=== PATIENT | female | born 1950 | race Hispanic/Latino ===

== ENCOUNTER 2018-01-04 14:26 | Inpatient (IN) | payer MEDICARE, OTHER ==
[2018-01-04 15:04] VITALS: BMI 37.8
--- NOTE | 2018-01-04 15:06 | ED PDOC ---
Arrival/HPI - General Time Seen by Provider: 01/04/18 14:44 Historian: Patient - History of Present Illness Narrative History of Present Illness (Text): 01/04/18 15:03 Jaimie Dejesus is a 67 year old female, whose past medical history includes CAD, MN with 2 stents, hypertension, and CVA, who presents to the Emergency department complaining of chest pain. Patient states she began experiencing mid- sternal chest pain yesterday evening while sitting at home. Patient states the episode lasted 30 minutes and then resolved on its own, but notes she was unable to go back sleep secondary to her chronic back pain. Patient states today at 14:30 prior to arrival while walking in a store, chest tightness returned with some associated shortness of breath. Patient denies any fever, chills, nausea, vomiting, diarrhea, urinary symptoms, back pain, neck pain, headache, dizziness, or any other complaints. PMD: Dr. Leger Satellite Communications Operator: Dr. Espinoza Symptom Onset: Gradual Symptom Course: Unchanged Activities at Onset: Light Context: Home Past Medical History - Provider Review Nursing Documentation Reviewed: Yes - Cardiac Hx Hypertension: Yes - Neurological HX Cerebrovascular Accident: Yes Hx Headaches: Yes - Musculoskeletal/Rheumatological Hx Arthritis: Yes Hx Back Pain: Yes Hx Degenerative Joint Disease: Yes - Psychiatric Hx Anxiety: Yes Hx Substance Use: No - Surgical History Hx Cholecystectomy: Yes Hx Hysterectomy: Yes - Anesthesia Hx Anesthesia: Yes - Suicidal Assessment Feels Threatened In Home Enviroment: No Family/Social History - Physician Review Nursing Documentation Reviewed: Yes Family/Social History: Unknown Family HX Smoking Status: Current Some Days Smoker Hx Alcohol Use: No Hx Substance Use: No Hx Substance Use Treatment: No Allergies/Home Meds Allergies/Adverse Reactions: Allergies Penicillins Allergy (Verified 01/04/18 15:11) ANAPHYLAXIS Home Medications: Home Meds Medication Instructions Recorded Confirmed Acetaminophen/Hydrocodone Bi 1 tab PO TID 01/19/12 04/16/15 [APAP/Hydrocodone Bitartrate 500 mg-5 mg] Alprazolam [Xanax] 0.5 mg PO BID 01/19/12 04/16/15 Atenolol [Atenolol] 100 mg PO DAILY 01/19/12 04/16/15 Clopidogrel Hydrogen Sulfate 75 mg PO DAILY 01/19/12 04/16/15 [Plavix] Diltiazem Hydrochloride [Cardizem 240 mg PO DAILY 01/19/12 04/16/15 Cd] Hydrochlorothiazide/Lisinopr 2 tab PO DAILY 01/19/12 04/16/15 [Lisinopril and Hydrochlorothiazide 12.5 mg-20] Lorazepam 1 mg PO HS 01/19/12 04/16/15 Aspirin [Aspirin Children's] 81 mg PO DAILY 02/25/12 04/16/15 Atorvastatin Calcium [Lipitor] 40 mg PO DAILY 02/25/12 04/16/15 Ipratropium/Albuterol Sulfate 1 puff INH QID 04/16/15 04/16/15 [Combivent] Pantoprazole Sodium [Pantoprazole 40 mg PO BID 04/16/15 04/16/15 Sodium] Review of Systems - Review of Systems Constitutional: absent: Fevers ENT: absent: Sore Throat, Rhinorrhea Respiratory: SOB Cardiovascular: Chest Pain, MARIE. absent: Edema, Calf Pain Gastrointestinal: absent: Abdominal Pain, Diarrhea, Nausea, Vomiting Genitourinary Female: absent: Dysuria, Frequency, Hematuria Musculoskeletal: absent: Back Pain, Neck Pain Skin: absent: Rash Neurological: absent: Headache, Dizziness Endocrine: absent: Polyuria Hemo/Lymphatic: absent: Easy Bleeding, Easy Bruising Psychiatric: absent: Depression, Suicidal Ideation Physical Exam - Physical Exam Narrative Physical Exam (Text): Head: Atraumatic. Normocephalic. Eyes: PERRL. EOMI. Conjunctivae are not pale. ENT: Mucous membranes are moist and intact. Oropharynx is clear and symmetric. Neck: Supple. Full ROM. No JVD. No lymphadenopathy. Cardiovascular: Regular rate. Regular rhythm. Systolic murmur. Blood pressure and pulse equal in both upper extremities as checked by me. Pulmonary/Chest: No evidence of respiratory distress. Clear to auscultation bilaterally. No wheezing, rales or rhonchi. Abdominal: Soft and non-distended. There is no tenderness. No rebound, guarding, or rigidity. No organomegaly. Good bowel sounds. Back: No CVA tenderness. Right sided lower lumbar paraspinal tenderness, no erythema or edema. Extremities: No edema. No cyanosis. No clubbing. Full range of motion in all extremities. No calf tenderness. Skin: Skin is warm and dry. No petechiae. No purpura. Neurological: Alert, awake, and oriented to person, place, time, and situation. Normal speech. Motor and sensory exam intact. Psychiatric: Good eye contact. Normal interaction, affect, and behavior. 0 Vital Signs Reviewed: Yes Vital Signs Temp Pulse Resp BP Pulse Ox 01/04/18 15:04 98.1 F 93 H 18 167/97 H 97 Temperature: Afebrile Blood Pressure: Hypertensive Pulse: Regular Respiratory Rate: Normal Appearance: Positive for: Well-Appearing, Non-Toxic, Comfortable Pain Distress: Mild Mental Status: Positive for: Alert and Oriented X 3 Medical Decision Making ED Course and Treatment: 01/04/18 15:03 Impression: 67 year old female complaining of mid-sterna chest tightness since yesterday evening. Differential Diagnosis included but are not limited to: MN vs. unstable angina vs. GERD Plan: -- EKG -- CXR -- Labs, cardiac enzymes -- Aspirin -- Plavix -- Reassess and disposition Progress Notes: 01/04/18 16:26 Patient's hospitalization in 2011 reviewed. Prior cath report reviewed. Patient reports chest discomfort, does not radiate to neck or back. No hypoxia or respiratory distress noted. No pleuritic pain. Quit smoking. Hx of htn. She stopped taking her aspirin and plavix "a while ago". Initial EKG was unremarkable, however pt has a significant past cardiac history with stent placement. Will admit to telemetry with cardiac consult with Dr. Espinoza. Case discussed with Dr. Leger, who is aware and agrees with plan. Accepts pt in to her service. 01/04/18 16:[address] Espinoza, boat dispatcher, who is aware and agrees with plan. 01/04/18 16:30 Chest X-ray Findings : LUNGS: No active pulmonary disease. PLEURA: No significant pleural effusion identified, no pneumothorax apparent. CARDIOVASCULAR: Normal. OSSEOUS STRUCTURES: No significant abnormalities. VISUALIZED UPPER ABDOMEN: Normal. OTHER FINDINGS: None. IMPRESSION: No active disease. Patient on re-evaluation with resolution of pain. ASA, plavix ordered. Dr. Espinoza at bedside, patient ordered Lovenox. She is currently pain free, denies sob. Reassessment Condition: Re-examined, Improving,but remains with symptoms - Lab Interpretations Lab Results: 01/04/18 15:55 01/04/18 15:55 Lab Results 01/04/18 15:55: Sodium 142, Potassium 4.5, Chloride 100, Carbon Dioxide 29, Anion Gap 18, BUN 12, Creatinine 0.7, Est GFR ( Amer) > 60, Est GFR (Non- Af Amer) > 60, Random Glucose 115 H, Calcium 10.1, Total Bilirubin 0.5, AST 46 H , ALT 65 H, Alkaline Phosphatase 96, Lactate Dehydrogenase 515, Total Creatine Kinase 67, Troponin I 0.01, Total Protein 7.3, Albumin 4.6, Globulin 2.8, Albumin/Globulin Ratio 1.7 01/04/18 15:55: PT 10.5, INR 0.92 L, APTT 30.6 01/04/18 15:55: WBC 9.4, RBC 4.47, Hgb 14.0, Hct 40.8, MCV 91.3, MCH 31.3, MCHC 34.3, RDW 13.5, Plt Count 224, MPV 8.8, Gran % 51.9, Lymph % (Auto) 39.8 H, [place] % (Auto) 5.1, Eos % (Auto) 2.9, Baso % (Auto) 0.3, Gran # 4.89, Lymph # ( Auto) 3.8 H, [place] # (Auto) 0.5, Eos # (Auto) 0.3, Baso # (Auto) 0.03 I have reviewed the lab results: Yes - RAD Interpretation Radiology Orders: 01/04/18 15:16 CHEST PORTABLE [RAD] Stat Clerical Associate: Radiologist - EKG Interpretation EKG Interpretation (Text): 01/04/18 17:02 EKG at 14:29 normal sinus rhythm rate of [address] abnormality Interpreted by ED Physician: Yes Type: 12 lead EKG - Medication Orders Current Medication Orders: Discontinued Medications Aspirin (Aspirin Chewable) 81 mg PO STAT STA Stop: 01/04/18 15:18 Last Admin: 01/04/18 15:42 Dose: 81 mg Clopidogrel Bisulfate (Plavix) 300 mg PO STAT STA Stop: 01/04/18 15:20 Last Admin: 01/04/18 15:42 Dose: 300 mg Enoxaparin Sodium (Lovenox) 90 mg SC STAT STA PRN Reason: Protocol Stop: 01/04/18 16:31 Last Admin: 01/04/18 16:56 Dose: 90 mg Subcutaneous Administrations Document 01/04/18 16:56 LA (Rec: 01/04/18 16:56 LA [id number]) Injection Site MAR Injection Site Left Arm Charges for Administration # of Subcutaneous Administrations 1 - Scribe Statement The provider has reviewed the documentation as recorded by the Scribe Ana M De Los Santos All medical record entries made by the Scribe were at my direction and personally dictated by me. I have reviewed the chart and agree that the record accurately reflects my personal performance of the history, physical exam, medical decision making, and the department course for this patient. I have also personally directed, reviewed, and agree with the discharge instructions and disposition. Disposition/Present on Arrival - Present on Arrival Any Indicators Present on Arrival: No History of DVT/PE: No History of Uncontrolled Diabetes: No Urinary Catheter: No History Surgical Site Infection Following: None - Disposition Have Diagnosis and Disposition been Completed?: Yes Diagnosis: Chest pain Disposition: HOSPITALIZED Disposition Time: 16:00 Patient Plan: Admission, Telemetry Condition: FAIR Discharge Instructions (ExitCare): Chest Pain (ED) Referrals: Ben Leger MD [Primary Care Provider] - Follow up with primary
[2018-01-04 16:05] LABS: BASO # 0.03 K/mm3 (0.0-2.0); BASO % 0.3 % (0.0-3.0); EOS # 0.3 (0.0-0.7); EOS % 2.9 % (1.5-5.0); GRAN # 4.89 (1.4-6.5); GRAN % 51.9 % (50.0-68.0); LYMPH # 3.8 (1.2-3.4); LYMPH % 39.8 % (22.0-35.0); MEAN CELL VOLUME 91.3 fl (80.0-105.0); MEAN CORPUSCULAR HEMOGLOBIN 31.3 pg (25.0-35.0); MEAN CORPUSCULAR HGB CONC 34.3 g/dl (31.0-37.0); MEAN PLATELET VOLUME 8.8 fl (7.0-11.0); MONO # 0.5 (0.1-0.6); MONO % 5.1 % (1.0-6.0); RBC 4.47 10^6/uL (3.5-6.1); RED CELL DISTRIBUTION WIDTH 13.5 % (11.5-14.5); WHITE BLOOD COUNT 9.4 10^3/ul (4.5-11.0)
[2018-01-04 16:19] LABS: ALB/GLOB RATIO 1.7 (1.1-1.8); ALBUMIN 4.6 g/dL (3.0-4.8); ALT/SGPT 65 U/L (7-56); AST/SGOT 46 U/L (14-36); BLOOD UREA NITROGEN 12 mg/dL (7-21); CALCIUM 10.1 mg/dL (8.4-10.5); GFR AFRICAN-AMERICAN > 60; GFR NON-AFRICAN AMERICAN > 60
[2018-01-04 16:21] LABS: INR 0.92 (0.93-1.08); PARTIAL THROMBOPLASTIN TIME 30.6 Seconds (25.1-36.5); PROTHROMBIN TIME 10.5 SECONDS (9.4-12.5)
--- NOTE | 2018-01-04 16:26 | RAD ---
HISTORY: chest pain COMPARISON: 02/23/2012 FINDINGS: LUNGS: No active pulmonary disease. PLEURA: No significant pleural effusion identified, no pneumothorax apparent. CARDIOVASCULAR: Normal. OSSEOUS STRUCTURES: No significant abnormalities. VISUALIZED UPPER ABDOMEN: Normal. OTHER FINDINGS: None. IMPRESSION: No active disease.
[2018-01-04 16:30] LABS: TROPONIN I 0.01 ng/mL
[2018-01-04] MEDS ORDERED: Enoxaparin 100 mg Syringe SC STA (16:30)
[2018-01-04 18:30] LABS: PH,URINE 6.5 (4.7-8.0); URINE BILIRUBIN NEGATIVE (NEGATIVE); URINE BLOOD NEGATIVE (NEGATIVE); URINE GLUCOSE (UA) NEGATIVE (NEGATIVE); URINE LEUKOCYTE ESTERASE NEGATIVE Leu/uL (NEGATIVE); URINE PROTEIN NEGATIVE mg/dL (<30 mg/dL); URINE UROBILINOGEN 0.2 E.U./dL (<1 E.U./dL)
[2018-01-04 18:33] LABS: URINE APPEARANCE CLEAR (CLEAR); URINE COLOR YELLOW (YELLOW)
--- NOTE | 2018-01-04 21:10 | CARD ---
APPROVED REPORT EKG Measurement Heart [id number] <Conclusion> Normal sinus rhythm Moderate voltage criteria for LVH, may be normal variant Nonspecific ST abnormality Prolonged QT Abnormal ECG
[2018-01-04] MEDS ORDERED: LORAZEPAM 1 MG PO SCH (22:00)
[2018-01-04 22:16] LABS: TROPONIN I 0.03 ng/mL
[2018-01-04] MEDS: Oxymetazoline 0.05% Nasal Spray (30 ml) NS SCH (22:32)
[2018-01-04] MEDS ORDERED: Pneumococcal 23-Valent Vaccine IM ONE (23:20)
--- NOTE | 2018-01-05 04:28 | CON ---
DATE: 01/04/2018 REASON FOR CONSULTATION: Followup chest pain, unstable angina, acute coronary syndrome. BRIEF CLINICAL HISTORY: A 67-year-old obese female with past medical history significant for coronary artery disease, noncompliance to the medication, status post stent in 2011, came in with complaint of 2 episodes of chest pain and tightness yesterday while patient was at home and watching TV, suddenly she has had tightness and chest pain, relieved after half an hour by itself. Today, patient was in [employer] shopping and she felt tightness and shortness of breath and came to the emergency room. Denies any episode of chest pain now. PAST MEDICAL HISTORY: Past history significant for history of degenerative joint disease, hypertension, osteoporosis, diverticular colonic disease, history of CVA in the past, history of coronary artery disease status post stent, and after the cardiac catheterization on 02/24/2012, very noncompliance to followup. At that time, the cardiac catheterization revealed left main essentially free of significant disease, heavily calcified right coronary artery, bifurcates into LAD and circumflex. LAD is a moderate caliber vessel proximally, but after the mid-segment, it is a very small caliber and heavily calcified artery and trunk calcification noted. At mid portion has 50% stenosis noted. Circumflex was also a moderately caliber vessel, heavily calcified, gives off trunk calcification owing to 50% to 60% stenosis noted. There is a complex 50% to 60% stenosis noted at the take off of OM1 and OM2. Right coronary artery is a moderately large caliber vessel, large PDA branch, mid portion with 99% stenosis with a bridge collateral very heavily calcified. LV angiogram revealed ejection fraction 50% to 55%. EDP was in the range of 18. At that time, the PTCA of right coronary artery was done with Xience drug eluting stent dated 02/23/2012. PREVIOUS CARDIAC WORKUP: History of angioplasty of right coronary artery, 12/27/2011. Followup stress tests on 01/29/2013 and then on 04/16/2015 are essentially normal myocardial perfusion studies. At that time, the comment was made that no change from previous stress test dated 01/29/2013, no significant change than the patient's last followup. CURRENT MEDICATIONS: Current medication patient is taking at home, pantoprazole, lorazepam, Combivent inhaler, hydrochlorothiazide-lisinopril, Cardizem CD 240 mg, Plavix 75 mg, atorvastatin, atenolol, aspirin, but patient stopped taking aspirin and Plavix both, now taking herbal medication. REVIEW OF SYSTEMS: As per HPI. PHYSICAL EXAMINATION: As follows: VITAL SIGNS: Temperature afebrile, heart rate 93, blood pressure 160/97. HEENT: PERRLA. Extraocular muscles intact. NECK: Supple. No carotid bruit or thyromegaly. CHEST: Clear to auscultation. HEART: S1 and S2, regular. ABDOMEN: Soft. EXTREMITIES: Clubbing and cyanosis, negative. DIAGNOSTIC DATA: EKG shows normal sinus rhythm, no acute ST-T changes noted. LABORATORY DATA: Blood workup as follows. WBC 9, hemoglobin 14, hematocrit 40.8, platelet count 224. Chemistry shows sodium 142, potassium 4.5, chloride 100, carbon dioxide 29, anion gap of 12, BUN 18, creatinine 0.7. Troponin is 0.01. IMPRESSION: Acute coronary artery syndrome, unstable angina, diabetes, hypertension, hyperlipidemia, obesity, noncompliance to medication, history of coronary artery disease, history of stent in right coronary artery. RECOMMENDATION: We will load with Plavix 300 mg. Give Lovenox 1 to 2 mg/kg. We will start aspirin and Plavix. Resume the previous medication including beta brina, KARIN inhibitors. Echo to assess LV function. Follow up serial CPK and troponin, and consider cardiac catheterization tomorrow. Discussed risks, benefits and alternative with patient, agreed to proceed with cardiac catheterization. Thank you, Dr. Leger for providing us the opportunity in taking care of the patient, Jaimie Dejesus. Catrachita Espinoza MD cc: Ben Leger MD MTDD
[2018-01-05 06:46] LABS: BASO # 0.03 K/mm3 (0.0-2.0); BASO % 0.4 % (0.0-3.0); EOS # 0.3 (0.0-0.7); EOS % 3.7 % (1.5-5.0); GRAN # 2.92 (1.4-6.5); HEMOGLOBIN 13.8 g/dL (12.0-16.0); LYMPH % 52.2 % (22.0-35.0); MEAN CELL VOLUME 90.8 fl (80.0-105.0); MEAN CORPUSCULAR HEMOGLOBIN 30.9 pg (25.0-35.0); MONO # 0.4 (0.1-0.6); MONO % 5.7 % (1.0-6.0); RBC 4.47 10^6/uL (3.5-6.1); RED CELL DISTRIBUTION WIDTH 13.4 % (11.5-14.5); WHITE BLOOD COUNT 7.7 10^3/ul (4.5-11.0)
[2018-01-05 06:51] LABS: ALB/GLOB RATIO 1.6 (1.1-1.8); ALBUMIN 4.5 g/dL (3.0-4.8); ALT/SGPT 65 U/L (7-56); AST/SGOT 44 U/L (14-36); BLOOD UREA NITROGEN 11 mg/dL (7-21); GFR AFRICAN-AMERICAN > 60; GFR NON-AFRICAN AMERICAN > 60; HDL CHOLESTEROL 49 mg/dL (29-60)
[2018-01-05 07:02] LABS: TROPONIN I 0.02 ng/mL
[2018-01-05 07:04] LABS: LDL CHOLESTEROL 104 mg/dL (0-129)
[2018-01-05] MEDS ORDERED: Lidocaine 2% Inj (20ml) ONE (07:06)
[2018-01-05] MEDS ORDERED: Verapamil 2 ML ONE (07:06)
[2018-01-05] MEDS ORDERED: Midazolam 2 MG/2 ML VIAL ONE ×3 (07:07→11:15)
[2018-01-05] MEDS ORDERED: Iodixanol 320 MG/ML 200 ML BOTTLE IV ONE (07:08)
[2018-01-05] MEDS ORDERED: Potassium Chloride 20 mEq ER Tab PO STA (07:33)
--- NOTE | 2018-01-05 08:42 | HP ---
DATE OF EXAM: 01/04/2018 HISTORY OF PRESENT ILLNESS: Patient is 67 year old, known to me from office practice, was recently seen in office because of her back pain. Patient states she stated to have chest discomfort since yesterday, got worse this morning, felt pressure. Patient denies any dizziness, does complain of mild shortness of breath. Denies any fever or chills. No history of nausea or vomiting. PAST MEDICAL HISTORY: Significant for: 1. Coronary artery disease, status post angioplasty. 2. Hypertension. 3. History of CVA in the past. 4. History of degenerative disk disease, status post multiple epidurals and stimulator placement. 5. History of diverticulosis. 6. Intermittent migraine headache. ALLERGIES: SHE IS ALLERGIC TO PENICILLIN. FAMILY HISTORY: Not relevant. MEDICATIONS AT HOME: Patient is on: 1. Lisinopril. 2. Hydrochlorothiazide. 3. Diltiazem 240 mg daily. 4. Plavix 75 daily. 5. Atorvastatin 40 mg daily. 6. Atenolol 100 mg daily. 7. Aspirin 81 daily. 8. Metformin 500 twice a day. 9. Protonix 40 daily. 10. Lorazepam 1 mg twice a day. 11. Xanax 0.5 twice a day. 12. Combivent. 13. Percocet. SOCIAL HISTORY: She has a history of smoking in the past, still smokes here and there. Denies alcohol use. REVIEW OF SYSTEMS: Significant for chest pressure, chronic back pain and intermittent shortness of breath. PHYSICAL EXAMINATION: GENERAL: She is awake, alert, oriented, communicative. VITAL SIGNS: She is afebrile. Pulse 93, respiration 18, blood pressure 167/97. LUNGS: Bilateral fair air flow. No rhonchi or crackle. HEART: S1 and S2 audible. ABDOMEN: Soft, nontender. No rebound, no guarding. NEUROLOGIC: She is awake and alert, able to communicate. LABORATORY EXAMINATION: WBC is 9.4, hemoglobin 14, hematocrit 40, platelet of 224. PT 10.5, INR 0.92. Chemistry: Sodium 142, potassium 4.5, chloride 100, CO2 29, BUN 12, creatinine 0.7, blood sugar 115. AST 46, ALT 65. ASSESSMENT AND PLAN: 1. Chest pain, rule out myocardial infarction. 2. Coronary artery disease, status post angioplasty. She has stress test done back in 2014. 3. Degenerative disk disease. 4. Patient had cardiac cath done in [address] Espinoza and had PTCA of right coronary artery done. 5. Insulin-dependent diabetes. 6. Anxiety disorder. 7. Chronic obstructive pulmonary disease. So plan is, patient will be kept in observation. We will follow up cardiac enzymes. resume all medications. Cardiology consult by Dr. Espinoza has been requested and we will start her on . Ben Leger MD
[2018-01-05] MEDS: Oxymetazoline 0.05% Nasal Spray (30 ml) NS SCH ×2 (09:17→20:17)
[2018-01-05] MEDS ORDERED: ATENOLOL 25 MG PO SCH (10:00)
[2018-01-05] MEDS ORDERED: Non Formulary Medication (Alprazolam [Xanax] 0.5 MG) PO SCH (10:00)
[2018-01-05] MEDS ORDERED: [UNRECOGNIZED DRUG - OTHER] PO SCH (10:00)
[2018-01-05] MEDS ORDERED: ASPIRIN 81 MG PO SCH (10:00)
[2018-01-05] MEDS ORDERED: HYDROCHLOROTHIAZIDE PO SCH (10:00)
[2018-01-05] MEDS ORDERED: DILTIAZEM HYDROCHLORIDE PO SCH (10:00)
[2018-01-05] MEDS ORDERED: LISINOPRIL PO SCH (10:00)
[2018-01-05] MEDS ORDERED: Eptifibatide 20 mg/10mL Inj IVP ONE (11:25)
[2018-01-05] MEDS ORDERED: Sodium Chloride 0.9% 1,000 ML IV SCH (12:30)
--- NOTE | 2018-01-05 13:07 | PN ---
DATE: 01/05/2018 SUBJECTIVE: The patient is a 67 years old, seen in lab clerk, having cardiac cath done, came in with chest pain and pressure, history of coronary artery disease in the past with angioplasty. PHYSICAL EXAMINATION: GENERAL: On examination today, she is awake, alert, oriented, communicative. VITAL SIGNS: She is afebrile, pulse rate 81, respirations 18, blood pressure 125/74. LUNGS: Bilateral good airflow. No rhonchi or crackle. HEART: S1 and S2 audible. ABDOMEN: Soft, obese, nontender. No rebound, no guarding. NEUROLOGIC: The patient is awake, alert, oriented, communicative. LABORATORY DATA: WBC 7.7, hemoglobin 13.8, hematocrit 40.6, platelet of 216. Chemistry: Sodium 142, potassium 3.6, chloride 101, CO2 26, BUN 11, creatinine 0.6. Blood sugar of 134. Urinalysis is unremarkable. ASSESSMENT: 1. Chest pain, rule out coronary artery disease. 2. Hypertension. 3. Morbid obesity. 4. History of cerebrovascular accident in the past. 5. Hyperlipidemia. 6. History of degenerative disk disease, status post multiple epidurals. 7. Coronary artery disease, status post right coronary artery angioplasty. PLAN: The patient is going for catheterization. We will continue on current medications. Further recommendation after cardiac cath. Ben Leger MD
[2018-01-05] MEDS: diltiaZEM 240 mg/24 Hours CD Cap PO SCH (13:08)
[2018-01-05] MEDS: Pantoprazole 40 mg EC Tab PO SCH ×2 (13:10→18:14)
--- NOTE | 2018-01-05 13:15 | CPOSTOP ---
DATE: 01/05/2018 CARDIOVASCULAR LAB PROCEDURE POSTPROCEDURE NOTE PHYSICIAN: Catrachita Espinoza MD UTILIZATION MANAGEMENT RN: Azeem Davis, durable medical equipment technician. TYPE OF ANESTHESIA: Moderate conscious sedation. Total dose given 3 mg of Versed, 100 of fentanyl. PRE-PROCEDURE DIAGNOSES: Unstable angina, acute coronary syndrome. PROCEDURE PERFORMED: Left heart catheterization and stenting of proximal right coronary artery and distal right coronary artery. FINDINGS: Proximal RCA 80% stenosis and distal RCA 90% stenosis. FINAL DIAGNOSIS: Critical one-vessel disease, proximal and distal right coronary artery. POSTPROCEDURE CONDITION: The patient is stable. VASCULAR ACCESS SITE: Right femoral artery. CLOSURE DEVICE: Angio-Seal. TOTAL RADIATION DOSE: DAP 52818.1 milligray unit. TOTAL FLUORO TIME: 20.8 minutes. Catrachita Espinoza MD MTDD
[2018-01-05 13:24] LABS: ALB/GLOB RATIO 1.7 (1.1-1.8); ALBUMIN 4.3 g/dL (3.0-4.8); ALT/SGPT 67 U/L (7-56); AST/SGOT 42 U/L (14-36); BLOOD UREA NITROGEN 9 mg/dL (7-21); CALCIUM 9.7 mg/dL (8.4-10.5); GFR AFRICAN-AMERICAN > 60; GFR NON-AFRICAN AMERICAN > 60
--- NOTE | 2018-01-05 13:33 | CARD ---
APPROVED REPORT EKG Measurement Heart [id number] MO 172P6 [id number] <Conclusion> Normal sinus rhythm Minimal voltage criteria for LVH, may be normal variant Prolonged QT Abnormal ECG
[2018-01-05 13:38] VITALS: RESP 20
--- NOTE | 2018-01-05 15:00 | CARD ---
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 INDICATION The indication(s) include : unstable angina . CASE TECHNIQUE The patient was brought urgently to the Cardiac Catheterization Laboratory in a fasting state and was prepped and draped in a sterile manner. The right femoral groin was infiltrated with 2% Lidocaine subcutaneous anesthesia. A 6 Fr x 11 cm Joy sheath was inserted into the right femoral artery without difficulty. Coronary angiography was performed using coronary diagnostic catheters. The left coronary system was accessed and visualized with a Diagnostic ,5 Fr JL 4 catheter. The right coronary system was accessed and visualized with a Diagnostic ,5F JR 4 CATH DXT 100 CM catheter. The left ventricle was accessed and visualized with a 5F PIGTAIL 145 CATH DXT 110 CM catheter. Left ventricular/Aortic Valve gradient assessed on pullback. Left ventriculogram was performed in [place] projection. Closure device was deployed with a 6 Fr Angio-Seal without any complications. The patient tolerated the procedure well and there were no complications associated with the procedure. Vessel Analysis The patient's coronary anatomy is right dominant. The left main coronary artery is a medium size vessel with diffuse calcification noted throughout this vessel and without significant stenosis. Heavily calcified The left main bifurcates to the left anterior descending and circumflex. The left anterior descending artery is a medium size vessel with diffuse calcification noted throughout this vessel and without significant stenosis. Heavily calcified after Mid segment Diffusely tappers The first diagonal branch is a small size vessel with diffuse calcification noted throughout this vessel and without significant stenosis. The circumflex artery is a medium size vessel with diffuse calcification noted throughout this vessel and without significant stenosis. Heavily calcified Vessel The first obtuse marginal branch is a small size vessel with diffuse calcification noted throughout this vessel and without significant stenosis. The second obtuse marginal branch is a medium size vessel with diffuse calcification noted throughout this vessel and with significant stenosis. There is a 70% stenosis in the ostial segment. Complex lesion and Heavily calcified and small calibre vessel The right coronary artery is a large size vessel with diffuse calcification noted throughout this vessel and with significant stenosis. patent stent in Mid segment There is a 90% stenosis in the distal segment. proximal RCA, proximal to stent 80% stenosis The right posterior descending artery is a medium size vessel with diffuse calcification noted throughout this vessel and without significant stenosis. The right posterolateral branch is a medium size vessel with diffuse calcification noted throughout this vessel and without significant stenosis. Left Ventricle The left ventricle is normal in size with hyperdynamic contractility contractility. There was no cardiomyopathy. The left ventricular ejection fraction is estimated to be 65%. The left ventricular end diastolic pressure is 18 mmHg. There was no gradient across the aortic valve upon pullback. PCI Technique Lesion Anticoagulation was achieved with Heparin. Percutaneous coronary intervention was performed on the distal right coronary artery. The lesion stenosis prior to intervention was 90% with PALAK 1 flow. A 6 Fr AR 1 Guide Catheter was used to engage the ostium. A Luge 182 Interventional Guidewire was used to cross the lesion. BALLOON DILATION A Balloon catheter 2.5 x 8 mm Trek RX was inserted and inflated up to 12.00atm for 24seconds. STENT DEPLOYMENT A drug-eluting stent STENT RESOLUTE ELENA 3.0 X 12 was inserted and inflated up to 12.00atm for 20seconds. Final angiography reveals 0 % stenosis with PALAK 3 flow. COMMENTS while stent was being deployed pt went into V FIb requiring DC Cardioversion and then 100 mg of IV Lidocaine given,Pt recovered completely after DC cardioversion and no further arrythmia or neurogical deficit noted. PCI Technique Lesion 2 Percutaneous Coronary Intervention was performed on the proximal right coronary artery. The lesion stenosis prior to intervention was 80% with PALAK 2 flow. A 6 Fr AR 1 Guide Catheter was used to engage the ostium. A Luge 182 Interventional Guidewire was used to cross the lesion. BALLOON DILATION A Balloon catheter 2.5 x 8 mm Trek RX was inserted and inflated up to 12atm for 20seconds. STENT DEPLOYMENT A drug-eluting stent STENT RESOLUTE ELENA 3.0 X 08 was inserted and inflated up to 14atm for 20seconds. Final angiography reveals 0 % stenosis with PALAK 3 flow. Conclusion Critical One vessel Proximal and Distal RCA diz. with heavily calcified vessel. Moderate Disease in mid Cx OM2 -70% stenosis, which is unchanged from 2012, small calibre, heavily calcified and complex stenosis. Patent stent in mid LAD. Preserved LV FX. EF-65%, EDP-18 mmof hg. Successful PTCA with LOTTIE of Distal and Proximal RCA. While deploying stent In Distal RCA Pt. went into V Fib. requiring DC Cardioversion, also 100 mg IV lidocaine given, After thet pt. recovered completely with no further Arrythmia or neurological deficit. Recommendations Daily ASA with Plavix for at least one year Aggressive Medical TherapyCardiac Risk Reduction Program Weight Loss Reduction Program Cc; Dr. Leger.
[2018-01-05 16:04] LABS: BASO # 0.02 K/mm3 (0.0-2.0); BASO % 0.3 % (0.0-3.0); EOS % 0.5 % (1.5-5.0); GRAN # 4.74 (1.4-6.5); GRAN % 59.4 % (50.0-68.0); HEMOGLOBIN 13.6 g/dL (12.0-16.0); LYMPH # 2.7 (1.2-3.4); LYMPH % 33.4 % (22.0-35.0); MEAN CELL VOLUME 89.4 fl (80.0-105.0); MEAN CORPUSCULAR HEMOGLOBIN 31.5 pg (25.0-35.0); MEAN CORPUSCULAR HGB CONC 35.2 g/dl (31.0-37.0); MEAN PLATELET VOLUME 8.6 fl (7.0-11.0); MONO # 0.5 (0.1-0.6); MONO % 6.4 % (1.0-6.0); RBC 4.32 10^6/uL (3.5-6.1); RED CELL DISTRIBUTION WIDTH 13.2 % (11.5-14.5)
[2018-01-05 16:13] LABS: BLOOD UREA NITROGEN 10 mg/dL (7-21); CALCIUM 10.1 mg/dL (8.4-10.5); GFR AFRICAN-AMERICAN > 60; GFR NON-AFRICAN AMERICAN > 60
--- NOTE | 2018-01-05 16:21 | CARD ---
APPROVED REPORT EXAM: Two-dimensional and M-mode echocardiogram with Doppler and color Doppler. INDICATION Chest Pain 2D DIMENSIONS Left Atrium (2D)3.6 (1.6-4.0cm)IVSd1.0 (0.7-1.1cm) LVDd4.0 (3.9-5.9cm)PWd1.2 (0.7-1.1cm) LVDs2.8 (2.5-4.0cm)FS (%) 30.3 % LVEF (%)58.1 (>50%) M-Mode DIMENSIONS Aortic Root3.80 (2.2-3.7cm)Aortic Cusp Exc.2.10 (1.5-2.0cm) Aortic Valve AoV Peak Gnvuhigy822.0cm/Melia Peak GR.7mmHg Mitral Valve MV E Rgzotsbh47.6cm/sMV A Sdalxfzt933.0cm/sE/A ratio0.6 TDI Lateral E' Peak V10.90cm/sMedial E' Peak V5.17cm/sE/Lateral E'6.5 E/Medial E'13.7 Pulmonary Valve PV Peak Iafnevnj48.7cm/sPV Peak Grad.2mmHg Tricuspid Valve TR Peak Fhftblkd495hn/sRAP GBUPTWXR32plHkMA Peak Gr.7mmHg MAVW44cvAv LEFT VENTRICLE The left ventricle is normal size. There is normal left ventricular wall thickness. The left ventricular function is normal.EF-55-60% There is normal LV segmental wall motion. Transmitral Doppler flow pattern is Grade III-reversible restrictive diastolic dysfunction. No left ventricle thrombus noted on this study. There is no ventricular septal defect visualized. There is no left ventricular aneurysm. There is no mass noted in the left ventricle. RIGHT VENTRICLE The right ventricle is normal size. There is normal right ventricular wall thickness. The right ventricular systolic function is normal. ATRIA The left atrium size is normal. The right atrium size is normal. The interatrial septum is intact with no evidence for an atrial septal defect. AORTIC VALVE The aortic valve is thickened but opens well. There is trace aortic regurgitation. There is no aortic valvular stenosis. There is no aortic valvular vegetation. MITRAL VALVE The mitral valve is thickened but opens well. Mitral annular calcification is mild to moderate. Mitral regurgitation is trace. There is no mitral valve stenosis. There is no evidence of mitral valve prolapse. TRICUSPID VALVE The tricuspid valve leaflets are thickened , but open well. There is trace tricuspid regurgitation.RVSP-17 mmof Hg. There is no tricuspid valve stenosis. There is no tricuspid valve prolapse or vegetation. PULMONIC VALVE The pulmonary valve is normal in structure. There is trace pulmonic valvular regurgitation. There is no pulmonic valvular stenosis. GREAT VESSELS The aortic root is normal in size. The ascending aorta is normal in size. The pulmonary artery is normal. The IVC is normal in size and collapses >50% with inspiration. PERICARDIAL EFFUSION There is no pleural effusion. There is no pericardial effusion. <Conclusion> Normal chamber Sizer. EF-55-60% TYrace MR/TR/AR/PI RVSP-17 mmof hg.
[2018-01-05] MEDS: Oxycodone/Acetaminophen 5/325 mg Tab PO PRN (16:29)
[2018-01-05 23:59] VITALS: O2SAT 95
[2018-01-06 06:31] LABS: BASO # 0.02 K/mm3 (0.0-2.0); BASO % 0.2 % (0.0-3.0); EOS # 0.1 (0.0-0.7); EOS % 1.1 % (1.5-5.0); GRAN # 5.8 (1.4-6.5); HEMOGLOBIN 14.3 g/dL (12.0-16.0); LYMPH # 2.9 (1.2-3.4); LYMPH % 30.2 % (22.0-35.0); MEAN CELL VOLUME 90.8 fl (80.0-105.0); MEAN CORPUSCULAR HEMOGLOBIN 31.2 pg (25.0-35.0); MEAN CORPUSCULAR HGB CONC 34.4 g/dl (31.0-37.0); MEAN PLATELET VOLUME 8.8 fl (7.0-11.0); MONO # 0.8 (0.1-0.6); MONO % 8.5 % (1.0-6.0); RBC 4.58 10^6/uL (3.5-6.1); RED CELL DISTRIBUTION WIDTH 13.7 % (11.5-14.5); WHITE BLOOD COUNT 9.7 10^3/ul (4.5-11.0)
[2018-01-06] MEDS: Oxymetazoline 0.05% Nasal Spray (30 ml) NS SCH (09:27)
[2018-01-06] MEDS: diltiaZEM 240 mg/24 Hours CD Cap PO SCH (09:27)
[2018-01-06] MEDS: Pantoprazole 40 mg EC Tab PO SCH (09:29)
[2018-01-06] MEDS: Oxycodone/Acetaminophen 5/325 mg Tab PO PRN (09:29)
--- NOTE | 2018-01-06 10:31 | PN ---
DATE: 01/06/2018 REASON FOR CONSULTATION AND FOLLOWUP: Chest pain, unstable angina, acute coronary syndrome, status post 2 stents in RCA. The patient denies any chest pain, shortness of breath, any palpitation. The patient is not in apparent distress. PHYSICAL EXAMINATION: VITAL SIGNS: As follows: Temperature afebrile, heart rate 87, blood pressure 118/68. HEENT: PERRLA, intact. NECK: Supple. No carotid bruit or thyromegaly. CHEST: Clear to auscultation. HEART: S1 and S2, regular. ABDOMEN: Soft. EXTREMITIES: Clubbing and cyanosis, negative. LABORATORY DATA: Blood workup as follows. WBC 9.3, hemoglobin 14.3, hematocrit 41.6, platelet count 217. Chemistry shows sodium 142, potassium 3.7, chloride 104, carbon dioxide 25, anion gap of 17, BUN 10, creatinine 0.6. EKG shows normal sinus rhythm with acute ST-T changes, essentially unchanged on admission. IMPRESSION: Acute coronary syndrome, status post percutaneous transluminal coronary angioplasty of right coronary artery, 2 drug eluting stents, proximal and distal right coronary artery. Status post ventricular fibrillation during angioplasty after placement of the first. Before deployment, the patient went to ventricular fibrillation requiring cardioversion, since then, the patient hemodynamically stable. No further episode of chest pain or any arrhythmia noted. Diabetes, hypertension, hyperlipidemia, obesity. History of percutaneous transluminal coronary angioplasty in the past in 2011 when the patient presented with acute coronary syndrome dated 02/23/2012. At that time, cardiac catheterization revealed complex stenosis of 50-60% at the origin of OM1 and OM2, which is more or less the same. May be a little bit worse, nearly calcified artery and small caliber vessels. EF preserved. RECOMMENDATION: Continue baby aspirin and continue Plavix. Continue atorvastatin 40 mg daily. Continue baseline medications which include metformin. Thank you, Dr. Leger for providing us the opportunity in taking care of the patient, Jaimie Dejesus. Catrachita Espinoza MD
[2018-01-06 12:01] VITALS: BP 132/84; PULSE 86; TEMP 98.5
--- NOTE | 2018-01-06 16:52 | CARD ---
APPROVED REPORT EKG Measurement Heart [id number] ME [id number] [id number] <Conclusion> Normal sinus rhythm Moderate voltage criteria for LVH, may be normal variant Borderline ECG
--- NOTE | 2018-01-07 04:54 | DS ---
HISTORY OF PRESENT ILLNESS: Patient is 67 years old who came in with chest pain. Patient had angioplasty done for RCA a couple of years ago, has been noncompliant, still smokes a few cigarettes a day, so she came in with chest pain, had cardiac cath done yesterday, had angioplasty done for RCA. She had V tach, was shocked, and went into regular rhythm. Doing well. Postprocedure doing well. No nausea, vomiting or diarrhea. PHYSICAL EXAMINATION: VITAL SIGNS: She is afebrile. Pulse 86, respirations 20, blood pressure 134/84. LUNGS: Bilateral good airflow. No rhonchi or crackle. HEART: S1 and S2 audible. ABDOMEN: Soft, nontender. No rebound, no guarding. NEUROLOGIC: Patient is awake, alert, oriented, communicative, ambulatory. Complains back pain. LABORATORY EXAMINATION: WBC 9.7, hemoglobin 14, hematocrit 41, platelets 217. Chemistry: Sodium 142, potassium 3.7, chloride 104, CO2 25, BUN 10, creatinine 0.6, blood sugar of 181. ASSESSMENT AND PLAN: 1. Chest pain, status post cardiac catheterization and had right coronary artery angioplasty done and had 2 drug-eluted stents placed on proximal and distal right coronary artery. 2. Hypertension. 3. Hyperlipidemia. 4. Chronic back pain. 5. Degenerative disk disease. 6. Cwu-lbwdtup-wyqblcfzd diabetes. So plan is, patient is being discharged home on Plavix 75 daily, aspirin 81 daily, and atorvastatin 40 mg daily. Patient will resume her medications including clonidine 0.1 twice a day. She will resume her nebulizer. She is on metformin 1000 twice a day, Xanax 0.5 b.i.d., Protonix and Lipitor. We will follow up the patient in the office in a week. Ben Leger MD
== END 2018-01-06 16:14 | disposition home or self-care (01) | DRG 246 ==
LOC: ED 14:26 → ERH 16:39 → 2RSO 20:52 → 2RNO 22:50
PROVIDERS: ADMIT Internal Medicine; ATTEND Internal Medicine
PROC: 027034Z Dilation of Coronary Artery, One Artery with Drug-eluting Intraluminal Device, Percutaneous Approach (ICD-10-PCS; principal; 2018-01-05)
PROC: 4A023N7 Measurement of Cardiac Sampling and Pressure, Left Heart, Percutaneous Approach (ICD-10-PCS; 2018-01-05)
PROC: 5A2204Z Restoration of Cardiac Rhythm, Single (ICD-10-PCS; 2018-01-05)
PROC: B2151ZZ Fluoroscopy of Left Heart using Low Osmolar Contrast (ICD-10-PCS; 2018-01-05)
PROC: B2111ZZ Fluoroscopy of Multiple Coronary Arteries using Low Osmolar Contrast (ICD-10-PCS; 2018-01-05)
PROC: 3E033PZ Introduction of Platelet Inhibitor into Peripheral Vein, Percutaneous Approach (ICD-10-PCS; 2018-01-05)
DX: I25.110 Atherosclerotic heart disease of native coronary artery with unstable angina pectoris (principal); I49.01 Ventricular fibrillation; F17.210 Nicotine dependence, cigarettes, uncomplicated; I10 Essential (primary) hypertension; E11.9 Type 2 diabetes mellitus without complications; M51.9 Unspecified thoracic, thoracolumbar and lumbosacral intervertebral disc disorder; E66.01 Morbid (severe) obesity due to excess calories; M81.0 Age-related osteoporosis without current pathological fracture; M19.90 Unspecified osteoarthritis, unspecified site; J44.9 Chronic obstructive pulmonary disease, unspecified; E78.5 Hyperlipidemia, unspecified; K57.90 Diverticulosis of intestine, part unspecified, without perforation or abscess without bleeding; G43.909 Migraine, unspecified, not intractable, without status migrainosus; F41.9 Anxiety disorder, unspecified; Z68.37 Body mass index [BMI] 37.0-37.9, adult; Z86.73 Personal history of transient ischemic attack (TIA), and cerebral infarction without residual deficits; Z88.0 Allergy status to penicillin; Z79.84 Long term (current) use of oral hypoglycemic drugs; Z91.19 Patient's noncompliance with other medical treatment and regimen; Z95.5 Presence of coronary angioplasty implant and graft; Z79.82 Long term (current) use of aspirin; Z79.02 Long term (current) use of antithrombotics/antiplatelets

== ENCOUNTER 2018-06-03 21:21 | Inpatient (IN) | payer MEDICARE, OTHER ==
[2018-06-03 21:35] VITALS: BMI 35.4
--- NOTE | 2018-06-03 21:47 | ED PDOC ---
Arrival/HPI - General Chief Complaint: Dizziness/Lightheaded Time Seen by Provider: 06/03/18 21:26 Historian: Patient - History of Present Illness Narrative History of Present Illness (Text): 06/03/18 21:44 Jaimie Dejesus is a 67 year old female, whose past medical history includes CAD, PR with cardiac stents, hypertension, and CVA, who presents to the Emergency department brought in by EMS complaining of dizziness. Patient states she was eating a sandwich prior to arrival when she began feeling increasingly dizzy and near-syncopal. Patient states she became concerned and notified EMS. Patient states she currently feels "foggy" but otherwise denies any fever, chills, chest pain, shortness of breath, nausea, vomiting, neck pain, or any other complaints. Patient states she was recently seen by her neurologist for headaches and was instructed to go for outpatient MRI of the brain. PMD: Dr. Leger Neurologist: Dr. Delgado Symptom Onset: Gradual Symptom Course: Unchanged Activities at Onset: Light Context: Home Past Medical History - Provider Review Nursing Documentation Reviewed: Yes - Infectious Disease Hx of Infectious Diseases: None - Cardiac Hx Angina: Yes Hx PR: Yes (x 2 stents) Hx Hypertension: Yes Other/Comment: PR - Pulmonary Hx Respiratory Disorders: No - Neurological HX Cerebrovascular Accident: Yes Other/Comment: LEG CRAMPS - HEENT Hx HEENT Disorder: No - Endocrine/Metabolic Hx Diabetes Mellitus Type 2: Yes - Hematological/Oncological Hx Blood Disorders: No - Integumentary Hx Dermatological Disorder: No - Musculoskeletal/Rheumatological Hx Degenerative Joint Disease: Yes Hx Falls: Yes - Gastrointestinal Hx Gall Bladder Disease: Yes - Genitourinary/Gynecological Hx Genitourinary Disorders: No - Psychiatric Hx Anxiety: Yes Hx Substance Use: No - Surgical History Hx Cardiac Catheterization: Yes Hx Cholecystectomy: Yes Hx Coronary Stent: Yes Hx Hysterectomy: Yes - Anesthesia Hx Anesthesia: Yes - Suicidal Assessment Feels Threatened In Home Enviroment: No Family/Social History - Physician Review Nursing Documentation Reviewed: Yes Family/Social History: Unknown Family HX Smoking Status: Never Smoked Hx Alcohol Use: No Hx Substance Use: No Hx Substance Use Treatment: No Allergies/Home Meds Allergies/Adverse Reactions: Allergies Penicillins Allergy (Verified 01/04/18 15:11) ANAPHYLAXIS Home Medications: Home Meds Medication Instructions Recorded Confirmed Atorvastatin Calcium [Lipitor] 40 mg PO DAILY 02/25/12 06/03/18 Ipratropium/Albuterol Sulfate 1 puff INH QID 04/16/15 06/03/18 [Combivent] Pantoprazole Sodium 40 mg PO DAILY 04/16/15 06/03/18 Albuterol/Ipratropium [Combivent 2 puff INH DAILY 01/04/18 06/03/18 Respimat] Alprazolam [Xanax] 0.5 mg PO DAILY 01/04/18 06/03/18 LORazepam [Ativan] 2 mg PO DAILY 01/04/18 06/03/18 RX: MetFORMIN [glucoPHAGE] 500 mg PO BID 01/04/18 06/03/18 RX: cloNIDine [Catapres (RENAL)] 0.1 mg PO DAILY 01/04/18 06/03/18 Aspirin [Adult Low Dose Aspirin EC] 1 tab PO DAILY 06/03/18 06/03/18 Clopidogrel [Plavix] 1 tab PO DAILY 06/03/18 06/03/18 Levocetirizine Dihydrochloride 1 tab PO DAILY 06/03/18 06/03/18 [Xyzal] Levofloxacin [Levaquin] 1 tab PO DAILY 06/03/18 06/03/18 Tkfbr-1-Zzww Ethyl Esters [OMEGA 3] 2 cap PO BID 06/03/18 06/03/18 Oxycodone HCl/Acetaminophen 1 tab PO PRN PRN 06/03/18 06/03/18 [Percocet 10-325 mg Tablet] Promethazine HCl/Codeine 5 ml PO TID 06/03/18 06/03/18 [Promethazine-Codeine Syrup] RX: Atenolol [Tenormin] 1 tab PO DAILY 06/03/18 06/03/18 RX: Olmesartan [BenicarNf] 1 tab PO DAILY 06/03/18 06/03/18 RX: oxyCODONE [oxyCODONE Immediate 1 tab PO PRN PRN 06/03/18 06/03/18 Release Tab] Tizanidine HCl [Zanaflex] 1 tab PO DAILY 06/03/18 06/03/18 Valsartan/Hydrochlorothiazide 1 tab PO DAILY 06/03/18 06/03/18 [Valsartan-Hctz 160-25 mg Tab] Review of Systems - Physician Review All systems were reviewed & negative as marked: Yes - Review of Systems Constitutional: Normal. absent: Fevers Eyes: Normal ENT: Normal Respiratory: Normal Cardiovascular: Other (+near-syncopal) Gastrointestinal: Normal. absent: Abdominal Pain, Diarrhea, Nausea, Vomiting Genitourinary Female: Normal. absent: Dysuria, Frequency, Hematuria, Urine Output Changes Musculoskeletal: Normal. absent: Back Pain, Neck Pain Skin: Normal. absent: Rash Neurological: Dizziness. absent: Headache Endocrine: Normal Hemo/Lymphatic: Normal Psychiatric: Normal Physical Exam Vital Signs Reviewed: Yes Vital Signs Temp 06/03/18 21:39 97.9 F Temperature: Afebrile Blood Pressure: Normal Pulse: Regular Respiratory Rate: Normal Appearance: Positive for: Well-Appearing, Non-Toxic, Comfortable Pain Distress: None Mental Status: Positive for: Alert and Oriented X 3 - Systems Exam Head: Present: Atraumatic, Normocephalic Pupils: Present: PERRL Extroacular Muscles: Present: EOMI Conjunctiva: Present: Normal Mouth: Present: Moist Mucous Membranes Neck: Present: Normal Range of Motion Respiratory/Chest: Present: Clear to Auscultation, Good Air Exchange. No: Respiratory Distress, Accessory Muscle Use Cardiovascular: Present: Regular Rate and Rhythm, Normal S1, S2. No: Murmurs Abdomen: No: Tenderness, Distention, Peritoneal Signs Back: Present: Normal Inspection Upper Extremity: Present: Normal Inspection. No: Cyanosis, Edema Lower Extremity: Present: Normal Inspection. No: Edema Neurological: Present: GCS=15, CN II-XII Intact, Speech Normal Skin: Present: Warm, Dry, Normal Color. No: Rashes Psychiatric: Present: Alert, Oriented x 3, Normal Insight, Normal Concentration Medical Decision Making ED Course and Treatment: 06/03/18 21:44 Impression: 67 year old female complaining of dizziness and near-syncope tonight Plan: -- CT Head w/o contrast -- EKG -- Chest X-ray -- Labs, troponin -- Reassess and disposition Prior Visits: Notes and results from previous visits were reviewed. On 01/04/2018, patient was seen in the Emergency department for chest pain. Patient was admitted to the hospital for further evaluation. Progress Notes: Reviewed EKG, NSR at 69 bpm. LVH. Non-specific ST/T wave changes. 06/03/18 23:19 Radiology reviewed, Chest X-ray shows no acute processes. CT Head shows: BRAIN No acute intraparenchymal hemorrhage. No mass lesion. No CT evidence for acute territorial infarct. No midline shift or extra-axial collections. There is mild periventricular white matter ischemic changes. There is advanced atheroscle rotic changes of the intracranial vasculature at the base of the brain. VENTRICLES: No hydrocephalus. ORBITS: The orbits are unremarkable. SINUSES AND MASTOIDS: The paranasal sinuses and mastoid air cells are clear. BONES: No fracture. IMPRESSION: No acute intracranial abnormality. Periventricular white matter ischemic changes. Advanced atherosclerotic changes. Electronically signed on Jun 03, 2018 11:18:29 PM EDT by: Bud Farley M.D., Certified by [facility], Diagnostic Radiology 06/03/18 23:[address] Leger, who is aware and agrees with plan. Accepts pt in to her service. Pt will go to remote telemetry observation for near syncope. Patient has a prescription with her, written by her neurologist, requesting MRI of the brain. - Lab Interpretations I have reviewed the lab results: Yes - RAD Interpretation Seconds Inspector: ED Physician, Radiologist - EKG Interpretation Interpreted by ED Physician: Yes Type: 12 lead EKG - Scribe Statement The provider has reviewed the documentation as recorded by the Scribe Ana M De Los Santos Provider Scribe Attestation: All medical record entries made by the Scribe were at my direction and personally dictated by me. I have reviewed the chart and agree that the record accurately reflects my personal performance of the history, physical exam, medical decision making, and the department course for this patient. I have also personally directed, reviewed, and agree with the discharge instructions and disposition. Disposition/Present on Arrival - Present on Arrival Any Indicators Present on Arrival: No History of DVT/PE: No History of Uncontrolled Diabetes: No Urinary Catheter: No History of Decub. Ulcer: No History Surgical Site Infection Following: None - Disposition Have Diagnosis and Disposition been Completed?: Yes Diagnosis: Near syncope Disposition: HOSPITALIZED Disposition Time: 23:00 Condition: GOOD
[2018-06-03 22:16] LABS: GRAN % 38.9 % (50.0-68.0); HEMOGLOBIN 12.7 g/dL (12.0-16.0); LYMPH % 45.4 % (22.0-35.0); MEAN CORPUSCULAR HEMOGLOBIN 30.8 pg (25.0-35.0); MEAN CORPUSCULAR HGB CONC 33.1 g/dl (31.0-37.0); MEAN PLATELET VOLUME 9.1 fl (7.0-11.0); RBC 4.13 10^6/uL (3.5-6.1); RED CELL DISTRIBUTION WIDTH 13.7 % (11.5-14.5); WHITE BLOOD COUNT 6.7 10^3/ul (4.5-11.0)
[2018-06-03 22:17] LABS: EOS # 0.5 (0.0-0.7); EOS % 8.1 % (1.5-5.0); MONO % 7.2 % (1.0-6.0)
[2018-06-03 22:18] LABS: BASO # 0.03 K/mm3 (0.0-2.0); BASO % 0.4 % (0.0-3.0); GRAN # 2.6 (1.4-6.5); MONO # 0.5 (0.1-0.6)
[2018-06-03 22:20] LABS: INR 1.01; PARTIAL THROMBOPLASTIN TIME 29.4 Seconds (25.1-36.5); PROTHROMBIN TIME 11.5 SECONDS (9.4-12.5)
[2018-06-03 22:24] LABS: ALB/GLOB RATIO 1.4 (1.1-1.8); ALBUMIN 4.1 g/dL (3.0-4.8); ALT/SGPT 57 U/L (7-56); AST/SGOT 38 U/L (14-36); BLOOD UREA NITROGEN 13 mg/dL (7-21); CALCIUM 9.4 mg/dL (8.4-10.5); GFR NON-AFRICAN AMERICAN > 60
[2018-06-03 22:35] LABS: TROPONIN I < 0.01 ng/mL
--- NOTE | 2018-06-04 09:16 | CT ---
Date of service: 06/03/2018 PROCEDURE: CT HEAD WITHOUT CONTRAST. HISTORY: syncope COMPARISON: None available. TECHNIQUE: Axial computed tomography images were obtained through the head/brain without intravenous contrast. Radiation dose: Total exam DLP = 872.67 mGy-cm. This CT exam was performed using one or more of the following dose reduction techniques: Automated exposure control, adjustment of the mA and/or kV according to patient size, and/or use of iterative reconstruction technique. FINDINGS: HEMORRHAGE: No intracranial hemorrhage. BRAIN: No mass effect or edema. Mild moderate patchy periventricular and deep/subcortical white matter lucency consistent with microvascular ischemic change. No evidence of acute infarct. VENTRICLES: Unremarkable. No hydrocephalus. CALVARIUM: Unremarkable. PARANASAL SINUSES: Unremarkable as visualized. No significant inflammatory changes. MASTOID AIR CELLS: Unremarkable as visualized. No inflammatory changes. OTHER FINDINGS: None. IMPRESSION: No intracranial mass, hemorrhage or evidence of acute infarct. Chronic microvascular white matter ischemic change. Otherwise unremarkable examination. The preliminary findings for this examination were reported by [facility] Radiology at 11:18 p.m. on 06/03/2018. There is concurrence of this report with the preliminary findings.
[2018-06-04] MEDS ORDERED: Albuterol-Ipratrop 3 mg / 0.5 (3 ml) UD IH PRN (09:47)
[2018-06-04] MEDS ORDERED: ATENOLOL PO SCH (10:00)
[2018-06-04] MEDS: Pantoprazole 40 mg EC Tab PO SCH (10:27)
--- NOTE | 2018-06-04 12:55 | RAD ---
Date of service: 06/03/2018 PROCEDURE: CHEST RADIOGRAPH, 1 VIEW HISTORY: syncope COMPARISON: 01/04/2018 FINDINGS: LUNGS: Clear. PLEURA: No pneumothorax or pleural fluid seen. CARDIOVASCULAR: Normal. OSSEOUS STRUCTURES: No significant abnormalities. VISUALIZED UPPER ABDOMEN: Normal. OTHER FINDINGS: None. IMPRESSION: No active disease.
[2018-06-04] MEDS ORDERED: Oxycodone/Acetaminophen 10/325 mg Tab PO STA (13:02)
[2018-06-04] MEDS: Albuterol-Ipratrop 3 mg / 0.5 (3 ml) UD IH SCH ×2 (14:28→20:18)
--- NOTE | 2018-06-04 15:21 | CARD ---
APPROVED REPORT Date of service: 06/03/2018 EKG Measurement Heart [id number] [id number] <Conclusion> Normal sinus rhythm Moderate voltage criteria for LVH, may be normal variant Possible Lateral infarct, age undetermined Abnormal ECG
[2018-06-04] MEDS: levoFLOXacin 500 mg in D5W 500 MG/100 ML BAG IVPB SCH (17:41)
[2018-06-04] MEDS: Oxycodone/Acetaminophen 10/325 mg Tab PO PRN (20:23)
[2018-06-04] MEDS: oxyCODONE 10 mg ER Tab (oxyCONTIN) PO SCH (22:36)
--- NOTE | 2018-06-05 01:25 | HP ---
DATE OF EXAM: 06/03/2018 HISTORY OF PRESENT ILLNESS: The patient is 67 years old who states last night she was watching TV, when she got up she felt very dizzy as if she was going to pass out, so she called her friend who lives in her building. When she came to see her, they called ambulance and she was brought to emergency room. She was found to have a blood pressure of 189/84 in the ER. She is being admitted for observation. PAST MEDICAL HISTORY: The patient has significant past medical history of: 1. Recent FL and she had cardiac cath done in 12/2017. 2. She had angioplasty for RCA. She was found to have patent stent in LAD. 3. History of CVA in the past. 4. History of degenerative disk disease, status post stimulator placement. 5. Status post multiple epidurals by Dr. Silvestre. 6. History of diverticulosis. 7. Migraine headache. ALLERGIES: SHE IS ALLERGIC TO PENICILLIN. MEDICATIONS AT HOME: 1. The patient is on Levaquin 500 daily for recent episode of bronchitis. 2. She is on Xyzal and promethazine with codeine. 3. She takes OxyContin and Percocet for her chronic back pain. 4. Zanaflex. 5. Clonidine. 6. Xanax 0.5 daily. 7. Valsartan. SOCIAL HISTORY: She used to smoke in the past, but recently she quit. Socially used to drink, but not anymore. PHYSICAL EXAMINATION GENERAL: Today, she is awake, alert, and oriented with negative complaint of back pain. VITAL SIGNS: She is afebrile. Pulse 76, respirations 22, blood pressure 190/100. LUNGS: Bilateral fair air flow. No rhonchi or crackle. HEART: S1 and S2 audible. ABDOMEN: Soft. Nontender. No rebound. No guarding. NEUROLOGIC: The patient is awake, alert, oriented, communicative. LABORATORY DATA: WBC 6.7, hemoglobin 12.7, hematocrit 38.4, platelet of 213. PT is 11.5, INR 1.01. Chemistry: Sodium 140, potassium 3.8, chloride 102, CO2 of 30, BUN 13, creatinine 0.7, blood sugar 127. AST 38, ALT 57. X-ray of the chest in unremarkable. MRI of LS spine done April shows multilevel degenerative disk disease. ASSESSMENT AND PLAN: 1. Near syncope with extreme dizziness. 2. Uncontrolled hypertension. 3. Chronic degenerative disk disease. 4. Coronary artery disease, status post recent angioplasty in December. 5. Hypertension. 6. Chronic migraine headache. PLAN: I will adjust patient's antihypertensives. We will monitor her blood sugar. Start her on antitussive. Continue her on Plavix and aspirin. We will follow up patient in a.m. Ben Leger MD
[2018-06-05] MEDS: Albuterol-Ipratrop 3 mg / 0.5 (3 ml) UD IH SCH ×4 (01:45→20:38)
[2018-06-05] MEDS: levoFLOXacin 500 mg in D5W 500 MG/100 ML BAG IVPB SCH (09:41)
[2018-06-05] MEDS: oxyCODONE 10 mg ER Tab (oxyCONTIN) PO SCH ×2 (09:47→21:44)
[2018-06-05] MEDS: Oxycodone/Acetaminophen 10/325 mg Tab PO PRN ×2 (11:49→19:43)
--- NOTE | 2018-06-05 17:36 | PN ---
DATE: 06/05/2018 SUBJECTIVE: The patient is 67 years old, still complained of feeling dizzy. Blood pressure seems to be running high, has a rash in her abdominal area. On examination, complained of back pain. PHYSICAL EXAMINATION VITAL SIGNS: The patient is afebrile, pulse 98, respirations 20, and blood pressure 182/102. LUNGS: Bilateral fair airflow. No rhonchi or crackle. HEART: S1, S2 audible. ABDOMEN: Soft, obese, and nontender. No rebound, no guarding. NEUROLOGIC: She is awake, alert, oriented, communicative, able to ambulate. Complained of back pain. ASSESSMENT: 1. Near syncope. 2. Uncontrolled hypertension. 3. Chronic degenerative disk disease. 4. Anxiety disorder. 5. Resolving bronchitis. PLAN: I will readjust the medication. We will increase her clonidine to 0.1 three times a day. We will add Norvasc 10 mg daily, nystatin for the rash, and we will monitor her another 24 hours. Cardiology consult has been requested. Ben Leger MD
[2018-06-05] MEDS: Nystatin 100,000 Units/gm Topical Pow(15 gm) TOP SCH (17:43)
[2018-06-06] MEDS: Albuterol-Ipratrop 3 mg / 0.5 (3 ml) UD IH SCH ×3 (01:50→13:15)
[2018-06-06] MEDS: Pantoprazole 40 mg EC Tab PO SCH (06:19)
--- NOTE | 2018-06-06 07:44 | CP.PCM.PN ---
Subjective - Date & Time of Evaluation Date of Evaluation: 06/06/18 Time of Evaluation: 06:50 - Subjective Subjective: Awake, alert, feels good Reason for consultation and follow up: Cardiac evaluation of near syncope, uncontrolled hypertension Seen and examined by me and Dr. Espinoza Objective - Vital Signs/Intake and Output Vital Signs (last 24 hours): Temp Pulse Resp BP Pulse Ox 97.6 F 85 20 150/82 95 06/06/18 00:01 06/06/18 06:00 06/06/18 00:01 06/06/18 00:01 06/06/18 00:01 Intake and Output: 06/06/18 06/06/18 06:59 18:59 Intake Total 360 Balance 360 - Medications Medications: Current Medications Acetaminophen (Tylenol 325mg Tab) 650 mg PO Q4H PRN PRN Reason: Pain, Mild (1-3) Albuterol/Ipratropium (Duoneb 3 Mg/0.5 Mg (3 Ml) Ud) 3 ml IH Q2H PRN PRN Reason: Shortness of Breath Albuterol/Ipratropium (Duoneb 3 Mg/0.5 Mg (3 Ml) Ud) 3 ml IH [id number] [facility] Last Admin: 06/06/18 01:50 Dose: Not Given Alprazolam (Xanax) 0.5 mg PO HS [facility]; Protocol Last Admin: 06/05/18 21:44 Dose: 0.5 mg Alprazolam (Xanax) 0.25 mg PO BID [facility]; Protocol Stop: 06/11/18 18:01 Last Admin: 06/05/18 17:43 Dose: 0.25 mg Amlodipine Besylate (Norvasc) 10 mg PO DAILY [facility] Last Admin: 06/05/18 11:23 Dose: 10 mg Aspirin (Ecotrin) 81 mg PO DAILY [facility] Last Admin: 06/05/18 09:39 Dose: 81 mg Atenolol (Tenormin) 100 mg PO DAILY [facility] Last Admin: 06/05/18 09:48 Dose: 100 mg Atorvastatin Calcium (Lipitor) 40 mg PO DIN [facility] Last Admin: 06/05/18 16:17 Dose: 40 mg Clonidine HCl (Catapres) 0.1 mg PO TID [facility] Last Admin: 06/05/18 17:42 Dose: 0.1 mg Clopidogrel Bisulfate (Plavix) 75 mg PO DAILY [facility] Last Admin: 06/05/18 09:47 Dose: 75 mg Hydralazine HCl (Apresoline) 10 mg PO QID PRN PRN Reason: for sbp>170 Levofloxacin (Levaquin) 500 mg PO DAILY [facility] Stop: 06/09/18 15:01 Lorazepam (Ativan) 2 mg PO DAILY [facility]; Protocol Last Admin: 06/05/18 09:39 Dose: 2 mg Losartan Potassium (Cozaar) 100 mg PO DAILY [facility] Last Admin: 06/05/18 09:46 Dose: 100 mg Metformin HCl (Glucophage) 500 mg PO BRKDIN [facility] Last Admin: 06/06/18 07:26 Dose: 500 mg Nystatin (Nystop Topical Powder) 0 gm TOP BID [facility] Last Admin: 06/05/18 17:43 Dose: 1 applic Oxycodone HCl (Oxycontin Extended Release Tab) 10 mg PO Q12 [facility] Stop: 06/07/18 22:01 Last Admin: 06/05/18 21:44 Dose: 10 mg Oxycodone/Acetaminophen (Percocet 10/325 Mg Tab) 1 tab PO Q6H PRN PRN Reason: Pain, moderate (4-7) Last Admin: 06/05/18 19:43 Dose: 1 tab Pantoprazole Sodium (Protonix Ec Tab) 40 mg PO 0600 [facility] Last Admin: 06/06/18 06:19 Dose: 40 mg Sodium Chloride ([place] Nasal [place]) 0 ml NS Q4 PRN PRN Reason: Nasal congestion Last Admin: 06/04/18 08:51 Dose: 2 sprays - Labs Labs: 06/03/18 22:00 06/03/18 22:00 PT 11.5 SECONDS (9.4-12.5) 06/03/18 22:00 INR 1.01 06/03/18 22:00 APTT 29.4 Seconds (25.1-36.5) 06/03/18 22:00 - Constitutional Appears: Non-toxic, No Acute Distress - Head Exam Head Exam: NORMAL INSPECTION, NORMOCEPHALIC - Eye Exam Eye Exam: Normal appearance Pupil Exam: NORMAL ACCOMODATION - ENT Exam ENT Exam: Mucous Membranes Moist - Respiratory Exam Respiratory Exam: Clear to Ausculation Bilateral, NORMAL BREATHING PATTERN - Cardiovascular Exam Cardiovascular Exam: REGULAR RHYTHM, +S1, +S2 - GI/Abdominal Exam GI & Abdominal Exam: Soft, Normal Bowel Sounds - Extremities Exam Extremities Exam: Full ROM, Normal Capillary Refill - Neurological Exam Neurological Exam: Alert, Awake, Oriented x3 - Psychiatric Exam Psychiatric exam: Normal Affect, Normal Mood - Skin Skin Exam: Dry, Normal Color, Warm Assessment and Plan - Assessment and Plan (Free Text) Assessment: A 67 year old female who came in to the ER due to dizziness and near syncope. history of coronary artery disease, [place] with cardiac stents, hypertension,hyp erlipidemia,former smoker and CVA. She was recently seen by Neurologist for headaches. Uncontrolled blood pressure on admission. Troponin negative. Chest Xray-unremarkable.EKG-NSR, no evidence of ischemia.CT of head- unremarkable. Review of previous cardiac work up at [facility] [place] 01/05/18- Cardiac catheterization and PTCA Critical one vessel proximal and distal disease of RCA Moderate disease in mid Cx OM2- 70% stenosis unchanged from 2012 Small and heavilt calcified complex stenosis Patent stent in mid LAD Preserved LV function EF 65% Successful PTCA and ARTIE of Distal and Proximal RCA 01/05/18 ECHO done Normal chamber LVEF 55-60% Trace MR/TR/AR/PI RVSP 17 mmHg Plan: Denies dizziness, feels okay Controlled blood pressure Controlled heart rate Cardiac status stable Continue current treatment Continue current medications May discharge from cardiac standpoint, and follow up with Neurology & for out patient MRI Will follow up Chart reviewed Plan and treatment discussed with Dr. Espinoza
[2018-06-06 08:12] VITALS: TEMP 97.9
[2018-06-06 08:37] LABS: BASO # 0.03 K/mm3 (0.0-2.0); BASO % 0.4 % (0.0-3.0); EOS # 0.8 (0.0-0.7); EOS % 10.1 % (1.5-5.0); GRAN # 2.36 (1.4-6.5); GRAN % 31.4 % (50.0-68.0); HEMOGLOBIN 13.8 g/dL (12.0-16.0); LYMPH % 52.9 % (22.0-35.0); MEAN CELL VOLUME 91.8 fl (80.0-105.0); MEAN CORPUSCULAR HEMOGLOBIN 30.5 pg (25.0-35.0); MEAN CORPUSCULAR HGB CONC 33.2 g/dl (31.0-37.0); MEAN PLATELET VOLUME 8.8 fl (7.0-11.0); MONO # 0.4 (0.1-0.6); MONO % 5.2 % (1.0-6.0); RBC 4.53 10^6/uL (3.5-6.1); RED CELL DISTRIBUTION WIDTH 13.5 % (11.5-14.5); WHITE BLOOD COUNT 7.5 10^3/ul (4.5-11.0)
--- NOTE | 2018-06-06 08:40 | CON ---
DATE: 06/05/2018 CONSULT SERVICE: Cardiology. REASON FOR THE CONSULTATION: History of coronary artery disease, history of stent admitted with dizziness secondary to uncontrolled hypertension. Admitting blood pressure 205/95. BRIEF CLINICAL HISTORY: This is a 67-year-old female with past medical history significant for coronary artery disease, status post stent, who said she was watching TV, suddenly she felt dizzy and felt weak, called the family who called the ambulance and brought here. At that time, the patient felt like she is going to pass out. Denies any chest pain, denies any shortness of breath, denies any palpitations. Admitting blood pressure in the ER was 205/95 to 100. PAST MEDICAL HISTORY: Significant of coronary artery disease, history of AL, history of multiple stents in RCA, history of CVA, history of degenerative joint disease status post a stimulator placement in the back, history of multiple epidurals by Dr. Silvestre, history of diverticular colonic disease, history of migraine in the past. PAST SURGICAL HISTORY: History of previous cardiac workup as follows: Most recently the patient had cardiac catheterization on 01/05/2018 and placement of 2 drug eluting stents, proximal RCA with ARTIE and distal RCA has another drug eluting stent dated 01/05/2018, when the patient presented with unstable angina. During this, the patient had also Vfib after crossing the right coronary artery and requiring DC shock cardioversion. After the successfully placed 2 drug eluting stents in proximal and distal RCA. History of prior angioplasty in 2011. The patient presented with acute coronary syndrome on 02/23/2012. At that time, the cardiac catheterization revealed complex stenosis of OM1. OM2 is more or less the same since catheterization. History of PTCA of mid RCA on 02/24/2012. Last catheterization revealed a critical *- proximal and distal RCA disease, heavily calcified vessels, moderate disease in circ, OM1 and OM2 was essentially unchanged from 2012, small caliber vessel. Preserved LV function ejection fraction of 65%, EDP was in the range of 18. During implant the patient went in to VT, VF requiring cardioversion with no sequelae after that. Ejection fraction is well preserved. At that time, the patent stent noted in the mid RCA. LAD is a heavily calcified vessel, but no flow obstructive stenosis noted. The patient had echocardiography done 01/05/2018, that revealed normal chamber size, ejection fraction 55% to 60%, trace mitral regurgitation, tricuspid regurgitation, trace aortic regurgitation, PI, RV systolic pressure is 70. SOCIAL HISTORY: Denies smoking. Denies any history of alcohol abuse. Quit smoking after 2011. CURRENT MEDICATIONS: The patient at home was taking oxycodone, clonidine 0.1 mg daily, valsartan 1 tablet daily, promethazine, oxycodone, metformin, levothyroxine, Plavix, atorvastatin, atenolol, aspirin, and albuterol. ALLERGIES: ALLERGIC TO PENICILLIN. REVIEW OF SYSTEMS: As per HPI. PHYSICAL EXAMINATION VITAL SIGNS: Height of the patient 5 feet 3 inches, weight of the patient 200 pounds, body mass index 35.4 kg/m2. The rest of the examination, temperature afebrile, heart rate 70, blood pressure 175/87. HEENT: PERRLA intact. NECK: Supple. No carotid bruit or thyromegaly. CHEST: Clear to auscultation. HEART: S1 and S2 regular. ABDOMEN: Soft. EXTREMITIES: Clubbing and cyanosis negative. LABORATORY DATA: Blood workup as follows: WBC 6.3, hemoglobin 12.7, hematocrit 38.4, platelet count 213. Chemistry shows sodium 140, potassium 3.8, chloride 102, carbon dioxide 30, anion gap of 4, BUN 13, creatinine 0.7. Troponin 0.01. IMPRESSION: A 67-year-old female with past medical history significant for coronary artery disease, status post stent first in the mid coronary artery on 02/23/2012, when the patient presented with unstable angina. Repeat, the patient admitted with acute coronary syndrome and 2 stents in proximal and distal right coronary artery were placed, mid stent was widely patent, admitted yesterday with uncontrolled hypertension, dizziness secondary to blood pressure 205/100. No evidence of acute myocardial infarction. Electrocardiogram shows normal sinus, no acute ST-T changes noted. Left ventricular hypertrophy by criteria by moderate left ventricular hypertrophy, but no acute ST-T changes noted. No evidence of acute myocardial infarction. RECOMMENDATION: We will adjust the medication, as the patient is on clonidine 0.1 mg b.i.d. Prior to that patient was on valsartan, which is called by FDA, so we will put 100 mg of losartan, put little diuretics, add 0.1 mg of clonidine p.o. t.i.d. and add amlodipine 10 mg daily. If he remains stable, we will possibly discharge home tomorrow. We will also get lipid profile, TSH, hemoglobin A1c as well as we will do the PRU test to see if there any resistance to the Plavix. Discussed with the patient if he remained stable, possibly discharge home tomorrow. We will follow with you. Thank you Dr. Leger, for providing us the opportunity in taking care of Jaimie Dejesus. The patient had echocardiography on 01/05/2018, that shows normal chamber size, trace MR, trace AR, trace PI, RV systolic pressure is 70, essentially normal echo. We will follow with you. You will put hydralazine p.r.n. also for 10 mg every 6 hours p.r.n. for systolic more than 170 and followup the lab in the morning, lipid profile, TSH and hemoglobin A1c as well as PRU test. Catrachita Espinoza MD
[2018-06-06 08:49] LABS: ALB/GLOB RATIO 1.4 (1.1-1.8); ALBUMIN 4.4 g/dL (3.0-4.8); ALT/SGPT 56 U/L (7-56); AST/SGOT 36 U/L (14-36); BLOOD UREA NITROGEN 13 mg/dL (7-21); CALCIUM 9.9 mg/dL (8.4-10.5); GFR NON-AFRICAN AMERICAN > 60; HDL CHOLESTEROL 43 mg/dL (29-60)
[2018-06-06 08:59] LABS: LDL CHOLESTEROL 99 mg/dL (0-129)
[2018-06-06] MEDS: oxyCODONE 10 mg ER Tab (oxyCONTIN) PO SCH (09:37)
[2018-06-06] MEDS: Nystatin 100,000 Units/gm Topical Pow(15 gm) TOP SCH (09:37)
[2018-06-06] MEDS ORDERED: levoFLOXacin 500 MG TAB PO SCH (10:00)
[2018-06-06 11:42] VITALS: RESP 18; O2SAT 96
[2018-06-06 14:27] VITALS: BP 165/89; PULSE 87
--- NOTE | 2018-06-06 15:52 | PN ---
DATE: 06/06/2018 REASON FOR THE CONSULTATION: Followup coronary artery disease. Admitted with uncontrolled hypertension, 205/95. The patient was started on clonidine. This morning, blood pressure is 141/90. Denies any chest pain, shortness of breath. Denies any palpitations. Denies any dizziness. This note is an addition to dictated by our nurse practitioner. Recommendation is to continue aggressive blood pressure. The patient was on valsartan and is nonformulary and pulled from the FDA, so suggested to continue losartan 100 mg daily, clonidine 0.1 mg p.o. three times a day. Add a little hydrochlorothiazide 12.5 mg daily, atenolol 100 mg and p.r.n hydralazine. If stable, possibly discharge home. We will follow with you. If remain stable, okay to be discharged. Thank you, Dr. Leger for providing us the opportunity in taking care of the patient, Jaimie Dejesus. Catrachita Espinoza MD
--- NOTE | 2018-06-06 18:41 | DS ---
HISTORY OF PRESENT ILLNESS: The patient is 67 years old, who was admitted after she felt that she is going to pass out. She called her friend how she was feeling, so friend called ambulance and she was brought to emergency room. She was found to have high blood pressure. She was monitored. Her blood pressure medications were adjusted. PHYSICAL EXAMINATION: GENERAL: On examination today, she is awake and alert, able to communicate. VITAL SIGNS: She is afebrile, pulse 87, respirations 18, blood pressure 165/89. LUNGS: Bilateral fair airflow. No rhonchi or crackle. HEART: S1 and S2 audible. ABDOMEN: Soft. Nontender. No rebound. No guarding. NEUROLOGICAL: She is awake, alert, oriented, communicative. LABORATORY EXAM: WBC 7.5, hemoglobin 13.8, hematocrit 41.6, platelet 210. Chemistry: Sodium 140, potassium 4, chloride 103, CO2 of 27, BUN 13, creatinine 0.7, blood sugar of 129. ASSESSMENT: 1. Near syncope. 2. Uncontrolled hypertension. 3. Migraine headache. 4. Chronic degenerative disk disease. 5. Noninsulin-dependent diabetes. 6. Hypertension. 7. Hyperlipidemia. 8. Coronary artery disease, recent angioplasty. PLAN: The patient is being discharged home today. She will continue Benicar. She has been started on Norvasc 10 mg daily. Her clonidine has been increased from 0.1 b.i.d. to 0.1 t.i.d. We will follow up the patient in the office . Ben Leger MD
--- NOTE | 2018-06-08 10:44 | PQF ---
PROVIDER RESPONSE TEXT: Provider was unable to determine a response for this query. REVIEWER QUERY TEXT: Hypertension Specificity Hypertension is documented in the medical record. Please specify the type of hypertension such as: -Cardiorenal -Crisis -Emergency -Portal -Pulmonary -Secondary (please specify underlying cause) -Urgency -With heart disease -With hypertensive encephalopathy -With renal disease -Other (please specify in the medical record) The patient's Clinical Indicators include: Uncontrolled hypertension---please specify type Query created by: Linda Ramirez on 06/08/2018 9:55 AM Electronically signed by: Ben Leger MD 06/08/2018 10:41 AM
== END 2018-06-06 15:30 | disposition home health service (06) | DRG 305 ==
LOC: ED 21:21 → ERH 23:27 → 3RSO 06-04 01:00 → OBSVTOIN 06-05 12:46
PROVIDERS: ADMIT Internal Medicine; ATTEND Internal Medicine
DX: I10 Essential (primary) hypertension (principal); R55 Syncope and collapse; R42 Dizziness and giddiness; I25.10 Atherosclerotic heart disease of native coronary artery without angina pectoris; G43.909 Migraine, unspecified, not intractable, without status migrainosus; M54.9 Dorsalgia, unspecified; F41.9 Anxiety disorder, unspecified; J40 Bronchitis, not specified as acute or chronic; E11.9 Type 2 diabetes mellitus without complications; M51.37 Other intervertebral disc degeneration, lumbosacral region; Z86.73 Personal history of transient ischemic attack (TIA), and cerebral infarction without residual deficits; I25.2 Old myocardial infarction; Z87.891 Personal history of nicotine dependence; Z95.5 Presence of coronary angioplasty implant and graft; Z79.84 Long term (current) use of oral hypoglycemic drugs; Z88.0 Allergy status to penicillin

== ENCOUNTER 2018-11-20 13:00 | Outpatient (CLI) | payer MEDICARE, OTHER | END 2018-11-20 13:01 | disposition home or self-care (01) | LOC: RAD 13:00 ==